=== PATIENT | female | born 1995 ===

== ENCOUNTER 2018-05-11 19:59 | Inpatient (IN) | payer OTHER ==
[~2018-05-11] VITALS: Ht 149.9 cm; Wt 59.0 kg
[2018-05-12] MEDS ORDERED: PRENATAL + DHA1 EAC1 PO (09:51)
== END 2018-05-20 15:42 | disposition home or self-care (01) | DRG 832 ==
LOC: OB/GYN 19:59
PROVIDERS: ADMIT Obstetrics & Gynecology
PROC: 4A1HXCZ Monitoring of Products of Conception, Cardiac Rate, External Approach (ICD-10-PCS; principal; 2018-05-11)
DX: O21.0 Mild hyperemesis gravidarum (principal); O23.41 Unspecified infection of urinary tract in pregnancy, first trimester; Z34.01 Encounter for supervision of normal first pregnancy, first trimester
CPT/HCPCS: 240

== ENCOUNTER 2018-12-04 21:38 | Inpatient (IN) | payer OTHER ==
[~2018-12-04] VITALS: Ht 149.9 cm; Wt 77.6 kg
[~2018-12-04 21:38] MED LIST: PRENATAL + DHA1 EAC1 PO
== END 2018-12-07 15:50 | disposition home or self-care (01) | DRG 807 ==
LOC: LDR 21:38 → OB/GYN 12-05 17:10
PROVIDERS: ADMIT Obstetrics & Gynecology
PROC: 4A1HXCZ Monitoring of Products of Conception, Cardiac Rate, External Approach (ICD-10-PCS; 2018-12-04)
PROC: 10E0XZZ Delivery of Products of Conception, External Approach (ICD-10-PCS; principal; 2018-12-05)
DX: O80 Encounter for full-term uncomplicated delivery (principal); Z37.0 Single live birth; Z3A.39 39 weeks gestation of pregnancy